=== PATIENT | male | born 1970 | race Caucasian/White ===

== ENCOUNTER → 2018-05-06 | Outpatient (CLI) | payer MEDICARE ==
[2018-05-06 16:59] LABS: Basophils # (auto) 0.1 uL; Basophils % (auto) 0.7 % (0.0-2.0); Eosinophils # (auto) 0.1 uL; Hemoglobin 14.8 g/dL (13.5-17.5); Lymphocytes # (auto) 1.6 uL
[2018-05-06 17:01] LABS: Eosinophils % (auto) 1.3 % (0.0-7.0); Hematocrit 44.4 % (41.0-53.0); Mean Corpuscular Hemoglobin 26.8 pg (28.0-32.0); Mean Corpuscular Hgb Conc. 33.4 g/dL (32.0-36.0); Mean Corpuscular Volume 80.1 fL (80.0-100.0); Monocytes # (auto) 0.9 uL; Monocytes % (auto) 7.9 % (0.0-12.0); Neutrophils # (auto) 8.2 uL; Neutrophils % (auto) 75.1 % (37.0-80.0); Platelet Count (auto) 245 10^3/uL (140-450); Red Blood Cells 5.54 10^6/uL (4.5-5.90); White Blood Cell 10.9 10^3/uL (4.4-10.8)
[2018-05-06 17:11] LABS: Prothrombin Time 84.4 sec (9.27-12.13)
[2018-05-06 17:23] LABS: INR 8.93 (0.9-1.15); Partial Thromboplastin Time 77.9 sec (23.78-33.04)
== END | disposition home or self-care (01) ==
LOC: LAB 15:48
PROVIDERS: ATTEND Internal Medicine
DX: D64.9 Anemia, unspecified (principal); R94.4 Abnormal results of kidney function studies; R79.1 Abnormal coagulation profile
CPT/HCPCS: 36415; 85025; 85610; 85730

== ENCOUNTER → 2018-05-07 | Outpatient (CLI) | payer MEDICARE | END | disposition home or self-care (01) | LOC: CHF HDHVI 10:14 | PROVIDERS: ATTEND Internal Medicine | DX: I82.409 Acute embolism and thrombosis of unspecified deep veins of unspecified lower extremity (principal); I25.10 Atherosclerotic heart disease of native coronary artery without angina pectoris; E66.01 Morbid (severe) obesity due to excess calories | CPT/HCPCS: G0463 ==

== ENCOUNTER → 2018-05-13 | Outpatient (CLI) | payer MEDICARE | END | disposition home or self-care (01) | LOC: CHF HDHVI 10:44 | PROVIDERS: ATTEND Internal Medicine Cardiovascular Disease | DX: I25.10 Atherosclerotic heart disease of native coronary artery without angina pectoris (principal); R79.1 Abnormal coagulation profile | CPT/HCPCS: 85610 ==